=== PATIENT | male | born 1980 | race Caucasian/White ===

== ENCOUNTER 2020-04-28 14:37 | Emergency (ER) | payer BC ==
[~2020-04-28] VITALS: Ht 167.6 cm; Wt 81.7 kg
[~2020-04-28 14:37] MED LIST: HYDROCODON-ACE1 EAC7 PO; IBUPROFEN 800800 MG PO
[2020-04-28 17:45] VITALS: BP 126/83
== END 2020-04-28 17:49 | disposition home or self-care (01) ==
LOC: M.ERS 14:37
DX: J06.9 Acute upper respiratory infection, unspecified (principal); Z20.828 Contact with and (suspected) exposure to other viral communicable diseases